=== PATIENT | male | born 1995 | race Caucasian/White ===

== ENCOUNTER 2018-11-17 23:41 | Emergency (ER) | payer OTHER ==
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
--- NOTE | 2018-11-18 01:40 | EDPHYS ---
Physician Documentation [facility] Name: Contreras Farr Age: 23 yrs Sex: Male : 1995 Arrival Date: 11/17/2018 Time: 23:56 Bed 18 Private MD: None, None ED Physician Ariane Arango HPI: 11/18 01:35 This 23 yrs old Male presents to ER via Ambulatory with complaints of Fall ma2 Injury. 01:35 Details of fall: The patient fell from a height, from an upright position. Onset: The ma2 symptoms/episode began/occurred suddenly, 1 day(s) ago. Severity of symptoms: in the emergency department the symptoms are unchanged. The patient has not experienced similar symptoms in the past. Historical: - Allergies: 00:00 ambien; ed1 - Home Meds: 00:00 None [Active]; ed1 - PMHx: 00:00 None; ed1 - PSHx: 00:00 None; ed1 - Immunization history:: Adult Immunizations unknown, Last tetanus immunization: unknown. - Social history:: Smoking status: Patient uses tobacco products, denies chronic smoking, but will smoke occasionally. - Ebola Screening: : Patient negative for fever greater than or equal to 101.5 degrees Fahrenheit, and additional compatible Ebola Virus Disease symptoms Patient denies exposure to infectious person Patient denies travel to an Ebola-affected area in the 21 days before illness onset No symptoms or risks identified at this time. ROS: 01:38 Constitutional: Negative for fever, chills, and weight loss. ma2 01:38 MS/extremity: Positive for abrasion, pain, Negative for decreased range of motion. 01:38 All other systems are negative. Exam: 01:38 Constitutional: This is a well developed, well nourished patient who is awake, alert, ma2 and in no acute distress. Head/Face: Normocephalic, atraumatic. ENT: Nares patent. No nasal discharge, no septal abnormalities noted. Tympanic membranes are normal and external auditory canals are clear. Oropharynx with no redness, swelling, or masses, exudates, or evidence of obstruction, uvula midline. Mucous membranes moist. Chest/axilla: Normal chest wall appearance and motion. Nontender with no deformity. No lesions are appreciated. Cardiovascular: Regular rate and rhythm with a normal S1 and S2. No gallops, murmurs, or rubs. Normal PMI, no JVD. No pulse deficits. Respiratory: Lungs have equal breath sounds bilaterally, clear to auscultation and percussion. No rales, rhonchi or wheezes noted. No increased work of breathing, no retractions or nasal flaring. Abdomen/GI: Soft, non-tender, with normal bowel sounds. No distension or tympany. No guarding or rebound. No evidence of tenderness throughout. MS/ Extremity: Pulses equal, no cyanosis. Neurovascular intact. Full, normal range of motion. Neuro: Awake and alert, GCS 15, oriented to person, place, time, and situation. Cranial nerves II-XII grossly intact. Motor strength 5/5 in all extremities. Sensory grossly intact. Cerebellar exam normal. Normal gait. 01:38 Eyes: Pupils equal round and reactive to light, extra-ocular motions intact. Lids and ma2 lashes normal. Conjunctiva and sclera are non-icteric and not injected. Cornea within normal limits. Periorbital areas with no swelling, redness, or edema. Neck: Trachea midline, no thyromegaly or masses palpated, and no cervical lymphadenopathy. Supple, full range of motion without nuchal rigidity, or vertebral point tenderness. No Meningismus. Vital Signs: 00:00 BP 154 / 95; Pulse 80; Resp 17; Temp 98.4(O); Pulse Ox 97% on R/A; Weight 77.11 kg; ed1 Height 5 ft. 10 in. (177.80 cm); Pain 2/10; 01:45 BP 140 / 67; Pulse 83; Resp 16 S; Pulse Ox 98% on R/A; cc3 00:00 Body Mass Index 24.39 (77.11 kg, 177.80 cm) ed1 Germaine Coma Score: 00:12 Eye Response: spontaneous(4). Verbal Response: oriented(5). Motor Response: obeys cc3 commands(6). Total: 15. Trauma Score (Adult): 00:12 Eye Response: spontaneous(1); Verbal Response: oriented(1); Motor Response: obeys cc3 commands(2); Systolic BP: > 89 mm Hg(4); Respiratory Rate: 10 to 29 per min(4); Germaine Score: 15; Trauma Score: 12 MDM: 00:42 Patient medically screened. ma2 01:38 Differential diagnosis: fracture, sprain, strain. Data reviewed: vital signs, nurses ma2 notes. Counseling: I had a detailed discussion with the patient and/or guardian regarding: the historical points, exam findings, and any diagnostic results supporting the discharge/admit diagnosis, the presence of at least one elevated blood pressure reading (>120/80) during this emergency department visit, the need for outpatient follow up. Medical screen evaluation completed. [facility] emergency medical condition absent. 11/18 01:00 Order name: Wrist Left (3 View) XRAY ma2 11/18 01:00 Order name: Elbow Left 3 View XRAY ma2 Administered Medications: No medications were administered Disposition: 11/18/18 01:39 Discharged to Home. Impression: Pain in left elbow. - Condition is Stable. - Discharge Instructions: Joint Pain. - Prescriptions for Tylenol- Codeine #3 300-30 mg Oral Tablet - take 2 tablet by ORAL route every 6 hours As needed; 6 tablet. - Medication Reconciliation Form, Thank You Letter, Antibiotic Education, Prescription Opioid Use form. - Follow up: Private Physician; When: Tomorrow; Reason: If symptoms return, Continuance of care. Signatures: Dispatcher [employer] EDMS Anca Ramires RN RN ed1 Ariane Arango MD MD ma2 Ana Luisa Iglesias cc3 Corrections: (The following items were deleted from the chart) 02:08 01:39 11/18/2018 01:39 Discharged to Home. Impression: Pain in left elbow. Condition is cc3 Stable. Forms are Medication Reconciliation Form, Thank You Letter, Antibiotic Education, Prescription Opioid Use. Follow up: Private Physician; When: Tomorrow; Reason: If symptoms return, Continuance of care. ma2
[2018-11-18 07:50] VITALS: BP 154/95; TEMP 98.4; O2SAT 97
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
--- NOTE | 2018-11-18 08:13 | RAD REPORT ---
EXAM DESCRIPTION: RAD - Wrist Left 3 View - 11/18/2018 4:45 am CLINICAL HISTORY: Left wrist pain status post injury FINDINGS: No fracture or dislocation is seen. If the patient continues to have symptoms to suggest an occult fracture then a followup plain film se leigh in 7 days would be recommended
== END 2018-11-18 02:08 | disposition home or self-care (01) ==
LOC: ER 23:41
DX: M25.522 Pain in left elbow (principal); Z72.0 Tobacco use
CPT/HCPCS: 99284